=== PATIENT | female | born 1950 | race Hispanic/Latino ===

== ENCOUNTER 2022-03-24 06:07 | Observation (INO) | payer OTHER ==
[2022-03-21 15:28] VITALS: BP 191/97
[2022-03-21 15:33] LABS: BASOPHILS % (AUTO) 0.4 % (0.0-5.0); HEMATOCRIT 40.5 % (36-48); LYMPHOCYTES % (AUTO) 28.3 % (21.0-51.0); MEAN CORPUSCULAR HEMOGLOBIN 27.7 pg (27.0-33.0); MEAN CORPUSCULAR HGB CONC 31.4 g/dL (32.0-36.0); MEAN CORPUSCULAR VOLUME 88.4 fL (79-99); MONOCYTES % (AUTO) 7.4 % (3.0-13.0); NEUTROPHILS % (AUTO) 63.6 % (40.0-77.0); PLATELET COUNT (AUTO) 353 K/uL (130-400); RED BLOOD CELL COUNT(AUTO) 4.58 MIL/uL (4.00-5.50); RED CELL DISTRIBUTION WIDTH 15.2 % (11.0-15.5); WHITE BLOOD COUNT (AUTO) 7.8 K/uL (4.8-10.8)
[2022-03-21 15:42] LABS: ALBUMIN 3.7 g/dL (3.5-5.0); CARBON DIOXIDE 31 mmol/L (21-32); CHLORIDE 101 mmol/L (101-111); CREATININE 0.8 mg/dL (0.5-1.5); CRP QUANTITATIVE < 2.00 mg/L (0.00-9.0); GLOMERULAR FILTR. RATE CALC 75 mL/min (>60); GLUCOSE,RANDOM 125 mg/dL (70-105); POTASSIUM 3.5 mmol/L (3.5-5.1); SODIUM SERUM 136 mmol/L (136-145); UREA NITROGEN, BLOOD 9 mg/dL (7-18)
[2022-03-21 15:45] LABS: INR 0.93 (0.85-1.15); PROTHROMBIN TIME 9.6 SEC (9.6-11.6)
[2022-03-21 15:46] LABS: PARTIAL THROMBOPLASTIN TIME 26.7 SEC (26.3-35.5)
[2022-03-24] VITALS (28 sets, daily range): BP systolic 122–192; BP diastolic 10–104
[~2022-03-24] VITALS: Ht 149.9 cm; Wt 50.3 kg
[~2022-03-24 06:07] MED LIST: ALBUMIN (HUMAN) 5% 250 ML IV ONE; BUPIVACAINE/PF 0.5% 30ML VIAL ONE; ESMOLOL HCL 10 MG/ML 10 ML VIAL ONE; KETOROLAC 30MG VIAL (30MG/ML) ONE; LEVO88CA4 PO; RIVA20TA PO; ROPIVACAINE 0.5% 5MG/ML 30ML IJ ONE; TAMS-1 PO; TRAM50TA4 PO; TRANEXAMIC ACID 1000MG/10ML ONE; TRAZ-187 PO
[2022-03-24] MEDS ORDERED: SUCCINYLCHOLINE 200MG/10ML SYR ONE (06:26)
[2022-03-24] MEDS ORDERED: LIDOCAINE PF 100MG/5ML (2%) SYRINGE 5ML ONE (06:26)
[2022-03-24] MEDS ORDERED: GLYCOPYRROLATE 1 MG/5 ML SYRINGE ONE (06:27)
[2022-03-24] MEDS ORDERED: PROPOFOL 10 MG/ML 20ML VIAL IV ONE (06:27)
[2022-03-24] MEDS ORDERED: DEXAMETHASONE SOD PHOSPHATE 10MG/ML 1ML VIAL ONE (06:27)
[2022-03-24] MEDS ORDERED: ONDANSETRON 4MG INJ ONE (06:27)
[2022-03-24] MEDS ORDERED: NEOSTIGMINE 5MG/5ML SYR IV ONE (06:27)
[2022-03-24] MEDS ORDERED: ROCURONIUM 10MG/1ML SYR 10 MG/ML ML ONE (06:28)
[2022-03-24] MEDS ORDERED: FENTANYL CITRATE PF 50 MCG/1 ML 2ML VIAL ONE ×3 (06:28→08:40)
[2022-03-24] MEDS ORDERED: MIDAZOLAM HCL 1 MG/ML 2ML VIAL ONE (06:28)
[2022-03-24] MEDS ORDERED: LACTATED RINGERS 1000ML 1,000 ML IV ONE (06:29)
[2022-03-24] MEDS: CEFAZOLIN SODIUM 2 GM VIAL ONE ×2 (06:42→07:20)
[2022-03-24 07:26] LABS: APPEARANCE,URINE TURBID (CLEAR); BILIRUBIN,URINE NEGATIVE (NEGATIVE); COLOR,URINE YELLOW (YELLOW); GLUCOSE, URINE (UA) NEGATIVE (NEGATIVE); KETONES,URINE NEGATIVE (NEGATIVE); LEUKOCYTE ESTERASE ,URINE NEGATIVE Leu/uL (NEGATIVE); NITRATE,URINE NEGATIVE (NEGATIVE); OCCULT BLOOD,URINE NEGATIVE (NEGATIVE); PROTEIN,URINE NEGATIVE (NEGATIVE); UROBILINOGEN,URINE 0.2 mg/dL (0.2-1.0)
[2022-03-24 08:42] LABS: BACTERIA,URINE RARE /HPF (None Seen); MUCUS,URINE RARE LPF (None Seen); RBC,URINE 0-1 /HPF (0-1); RENAL EPITHELIAL CELLS,URINE RARE /HPF (None Seen); SQUAMOUS EPITHELIAL CELL,UR FEW /HPF (0-2)
[2022-03-24] MEDS ORDERED: POTASSIUM CHLORIDE 20MEQ/100ML 100 ML IV PRN (09:00)
[2022-03-24] MEDS ORDERED: KCL 20 MEQ ERTAB PO PRN (09:00)
[2022-03-24] MEDS ORDERED: KETOROLAC 15MG/ML VIAL (15MG/ML) IV PRN (09:00)
[2022-03-24] MEDS ORDERED: DiphenhydrAMINE HCL 50 MG/ML VIAL IVP PRN (09:00)
[2022-03-24] MEDS ORDERED: CALCIUM CARB 500MG PO PRN (09:00)
[2022-03-24] MEDS: 0.9%NACL 1000ML 1,000 ML IV SCH ×2 (09:00→18:34)
[2022-03-24] MEDS ORDERED: LIDOCAINE HCL-MPF 1% 2ML VIAL IV PRN (09:00)
[2022-03-24] MEDS ORDERED: FERROUS FUMARATE 324 MG TABLET PO PRN (09:00)
[2022-03-24] MEDS: DOCUSATE SODIUM 100 MG CAP PO SCH ×2 (09:00→20:17)
[2022-03-24] MEDS: GABAPENTIN 100 MG CAPSULE PO SCH ×3 (09:00→20:21)
[2022-03-24] MEDS ORDERED: POTASSIUM CHLORIDE 10% ELIXIR 20 MEQ/15 ML UDCUP PO PRN (09:00)
[2022-03-24] MEDS: POLYETHYLENE GLYCOL 3350 17 GM POWD.PACK PO SCH (09:00)
[2022-03-24] MEDS ORDERED: MEPERIDINE-PF 25 MG/ML SYG ONE ×2 (09:07→09:40)
[2022-03-24] MEDS ORDERED: LABETALOL 20MG SYG IV ONE (09:46)
[2022-03-24] MEDS: ONDANSETRON 4MG INJ IVP PRN ×2 (10:19→11:34)
[2022-03-24] MEDS: KETOROLAC 15MG/ML VIAL (15MG/ML) IV SCH ×2 (11:32→17:00)
[2022-03-24] MEDS: HYDROCODONE/ACETAMINOPHEN 5/325 MG TAB PO PRN ×2 (16:37→21:54)
[2022-03-24] MEDS: CEFAZOLIN SODIUM 1 GM VIAL IVP SCH ×2 (16:37→21:52)
[2022-03-24] MEDS: TRAZODONE HCL 100 MG TABLET PO SCH (20:17)
[2022-03-24] MEDS: TAMSULOSIN HCL 0.4 MG CAP.ER.24H PO SCH (20:17)
[2022-03-24] MEDS: CYCLOBENZAPRINE HCL 10 MG TABLET PO PRN (20:17)
[2022-03-24] MEDS: TRAMADOL HCL 50 MG TABLET PO PRN (20:18)
[2022-03-25] MEDS: KETOROLAC 15MG/ML VIAL (15MG/ML) IV SCH (00:42)
[2022-03-25 03:12] VITALS: BP 144/66
[2022-03-25] MEDS: 0.9%NACL 1000ML 1,000 ML IV SCH (05:00)
[2022-03-25] MEDS: LEVOTHYROXINE 88 MCG TABLET PO SCH (06:18)
[2022-03-25] MEDS: HYDROCODONE/ACETAMINOPHEN 5/325 MG TAB PO PRN ×3 (06:24→20:58)
[2022-03-25 06:31] LABS: HEMATOCRIT 29.3 % (36-48); MEAN CORPUSCULAR HEMOGLOBIN 28.2 pg (27.0-33.0); MEAN CORPUSCULAR HGB CONC 33.8 g/dL (32.0-36.0); MEAN CORPUSCULAR VOLUME 83.5 fL (79-99); RED BLOOD CELL COUNT(AUTO) 3.51 MIL/uL (4.00-5.50); RED CELL DISTRIBUTION WIDTH 14.6 % (11.0-15.5)
[2022-03-25 06:43] LABS: CREATININE 0.6 mg/dL (0.5-1.5); POTASSIUM 3.5 mmol/L (3.5-5.1)
[2022-03-25 08:00] VITALS: BP 127/72
[2022-03-25] MEDS: GABAPENTIN 100 MG CAPSULE PO SCH ×3 (11:38→20:57)
[2022-03-25] MEDS: DOCUSATE SODIUM 100 MG CAP PO SCH ×2 (11:38→20:57)
[2022-03-25] MEDS: POLYETHYLENE GLYCOL 3350 17 GM POWD.PACK PO SCH (11:38)
[2022-03-25] MEDS: ASPIRIN 325MG TAB PO SCH (11:39)
[2022-03-25 12:00] VITALS: BP 141/67
[2022-03-25 16:00] VITALS: BP 121/72
[2022-03-25 20:37] VITALS: BP 156/78
[2022-03-25] MEDS: CYCLOBENZAPRINE HCL 10 MG TABLET PO PRN (20:56)
[2022-03-25] MEDS: TRAMADOL HCL 50 MG TABLET PO PRN (20:57)
[2022-03-25] MEDS: TAMSULOSIN HCL 0.4 MG CAP.ER.24H PO SCH (20:57)
[2022-03-25] MEDS: TRAZODONE HCL 100 MG TABLET PO SCH (20:58)
[2022-03-25 23:47] VITALS: BP 157/61
[2022-03-26 03:58] VITALS: BP 145/74
[2022-03-26] MEDS: LEVOTHYROXINE 88 MCG TABLET PO SCH (05:58)
[2022-03-26] MEDS: HYDROCODONE/ACETAMINOPHEN 5/325 MG TAB PO PRN ×2 (06:56→08:51)
[2022-03-26 08:00] VITALS: BP 142/79
[2022-03-26] MEDS: POLYETHYLENE GLYCOL 3350 17 GM POWD.PACK PO SCH (08:50)
[2022-03-26] MEDS: GABAPENTIN 100 MG CAPSULE PO SCH ×2 (08:50→13:38)
[2022-03-26] MEDS: ASPIRIN 325MG TAB PO SCH (08:50)
[2022-03-26] MEDS: DOCUSATE SODIUM 100 MG CAP PO SCH (08:50)
[2022-03-26 11:00] VITALS: BP 137/70
[2022-03-26 13:29] LABS: HEMATOCRIT 30.5 % (36-48); MEAN CORPUSCULAR HEMOGLOBIN 27.8 pg (27.0-33.0); MEAN CORPUSCULAR HGB CONC 32.8 g/dL (32.0-36.0); MEAN CORPUSCULAR VOLUME 84.7 fL (79-99); RED BLOOD CELL COUNT(AUTO) 3.6 MIL/uL (4.00-5.50); RED CELL DISTRIBUTION WIDTH 14.7 % (11.0-15.5); WHITE BLOOD COUNT (AUTO) 10.7 K/uL (4.8-10.8)
[2022-03-26] MEDS ORDERED: GABA100C PO (14:36)
[2022-03-26] MEDS ORDERED: CYCL-309 PO (14:36)
[2022-03-26] MEDS ORDERED: DOCU-116 PO (14:36)
[2022-03-26] MEDS ORDERED: HYDR-4060 PO (14:36)
[2022-03-26] MEDS ORDERED: ASPI-1026 PO (14:36)
[2022-03-27] MEDS ORDERED: BISACODYL 10 MG SUPP.RECT RC PRN (09:00)
== END 2022-03-26 16:20 | disposition home health service (06) ==
LOC: DAH 06:07 → DAHIP 06:08 → DAH 06:08 → 3BH 10:30
PROVIDERS: ADMIT Student in an Organized Health Care Education/Training Program; ATTEND Student in an Organized Health Care Education/Training Program
DX: M17.11 Unilateral primary osteoarthritis, right knee (principal); Z20.822 Contact with and (suspected) exposure to COVID-19; M25.561 Pain in right knee; M25.562 Pain in left knee; G89.29 Other chronic pain; M17.0 Bilateral primary osteoarthritis of knee; D62 Acute posthemorrhagic anemia; Z79.899 Other long term (current) drug therapy; Z98.890 Other specified postprocedural states
CPT/HCPCS: 82040; 80048 ×2; 85025; 85610; 85730; 87088; 86140; 87426; 87641; 97039 ×6; 27447; 96374; 96376 ×2; 96375; 76942; 64447; 87077; 87186; 84134; 81001; 36415 ×3; 73560; 97161; 97530 ×4; 85027 ×2; 97116 ×4; 93005; G0378 ×51; A4663; A4215 ×2; P9045; J7120; J1200; J3010 ×3; J0690 ×3; J3490 ×5; J0330; J1100; J2710; J7030; J2001; J2250; J2704; J2405 ×2; J1885 ×3; J2175 ×2; J2795; G0168; A4649 ×4; C1776; A6255; A5120; A4223; A4222; A4221

== ENCOUNTER 2024-08-10 06:24 | Observation (INO) | payer OTHER ==
--- NOTE | 2024-08-08 09:30 | EKG ---
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
[2024-08-08 09:32] VITALS: BP 140/63; PULSE 68; RESP 17; TEMP 98.1
[2024-08-08 09:35] LABS: IMMATURE GRANULOCYTE ABSOLUTE 0.02 K/uL (0-1); NUCLEATED RED BLOOD CELLS 0.0 % (0.0-0.19); PLATELET COUNT (AUTO) 319 K/uL (130-400); RED BLOOD CELL COUNT(AUTO) 4.47 MIL/uL (4.00-5.50); RED CELL DISTRIBUTION WIDTH 15.5 % (11.0-15.5); WHITE BLOOD COUNT (AUTO) 7.3 K/uL (4.8-10.8)
[2024-08-08 09:43] LABS: APPEARANCE,URINE CLEAR (CLEAR); GLUCOSE, URINE (UA) NEGATIVE (NEGATIVE); LEUKOCYTE ESTERASE ,URINE NEGATIVE Leu/uL (NEGATIVE); NITRATE,URINE NEGATIVE (NEGATIVE); OCCULT BLOOD,URINE NEGATIVE (NEGATIVE)
[2024-08-08 09:45] LABS: ADD UA MICROSCOPIC NO
[2024-08-08 09:45] LABS: CREATININE 0.5 mg/dL (0.5-1.0); GLOMERULAR FILTR. RATE CALC 98.0 mL/min (>90); GLUCOSE,RANDOM 96.0 mg/dL (70-105); SODIUM SERUM 139.0 mmol/L (136-145); UREA NITROGEN, BLOOD 7.0 mg/dL (7-18)
[2024-08-08 09:47] LABS: INR <= 0.93 (0.85-1.15)
--- NOTE | 2024-08-08 09:53 | NUR ---
RE: IS INITIAL IS INITIAL TEACHING DONE BY RT DELMER DURING PREOP
[2024-08-10] VITALS (35 sets, daily range): BP systolic 96–189; BP diastolic 5–92; PULSE 15–92; RESP 14–20; TEMP 97.3–98.2; O2SAT 96–97
[~2024-08-10] VITALS: Ht 142.2 cm; Wt 55.8 kg
[~2024-08-10 06:24] MED LIST changes: -ALBUMIN (HUMAN) 5% 250 ML IV ONE; -BUPIVACAINE/PF 0.5% 30ML VIAL ONE; -ESMOLOL HCL 10 MG/ML 10 ML VIAL ONE; -KETOROLAC 30MG VIAL (30MG/ML) ONE; +LEVO100T12 PO; -LEVO88CA4 PO; +LOSA25TA41 PO; -RIVA20TA PO; +ROPI1TAB46 PO; -ROPIVACAINE 0.5% 5MG/ML 30ML IJ ONE; -TAMS-1 PO; +TRAM100C3 PO; -TRAM50TA4 PO; -TRANEXAMIC ACID 1000MG/10ML ONE; +TRAZ-185 PO; -TRAZ-187 PO
[2024-08-10] MEDS: LACTATED RINGERS 1000ML 1,000 ML IV ONE (06:54)
[2024-08-10] MEDS ORDERED: SUCCINYLCHOLINE CHLORIDE 20 MG/ML 10 ML VIAL ONE (07:23)
[2024-08-10] MEDS ORDERED: LIDOCAINE PF 100MG/5ML (2%) SYRINGE 5ML ONE (07:23)
[2024-08-10] MEDS ORDERED: GLYCOPYRROLATE 0.2 MG/ML 5 ML VIAL ONE (07:24)
[2024-08-10] MEDS ORDERED: NEOSTIGMINE METHYLSULFATE 1MG/ML IV ONE (07:24)
[2024-08-10] MEDS ORDERED: TRANEXAMIC ACID 1000MG/10ML ONE (07:28)
[2024-08-10] MEDS ORDERED: MIDAZOLAM HCL 1 MG/ML 2ML VIAL ONE (07:41)
[2024-08-10] MEDS: 0.9%NACL 1000ML 1,000 ML IV SCH (08:00)
[2024-08-10] MEDS: FAMOTIDINE 20MG VIAL IV ONE (08:49)
[2024-08-10] MEDS ORDERED: FERROUS FUMARATE 324 MG TABLET PO PRN (11:00)
[2024-08-10] MEDS ORDERED: HYDROcodone/APAP 5/325 1 TAB TABLET PO PRN (11:00)
[2024-08-10] MEDS ORDERED: PoTASSium chl 10% ELIXIR 20MEQ 20 MEQ/15 ML UDCUP PO PRN (11:00)
[2024-08-10] MEDS ORDERED: CYCLOBENZAPRINE HCL 10 MG TABLET PO PRN (11:00)
--- NOTE | 2024-08-10 12:51 | HMCIMG ---
EXAM: CR left knee, 2 View. CLINICAL HISTORY: S/P LEFT TKA SURGERY COMPARISON: None provided. FINDINGS: Cemented left total knee arthroplasty is in near anatomic alignment with no periprosthetic fracture appreciated. Left knee joint effusion. Appropriate postsurgical changes within the soft tissues. IMPRESSION: 1. Status post left total knee arthroplasty with near anatomic alignment. Left knee joint effusion. 2. No acute findings. /[place]
--- NOTE | 2024-08-10 14:00 | NUR ---
REPORT TAKEN FROM FELY RN. PATIENT ARRIVED TO THE UNIT NO SIGNS OF DISTRESS NOTED. POST OP VITALS STARTED, SCDS CONNECTED WELL FLUIDS. WILL MONITOR PATIENT FOR PAIN.
--- NOTE | 2024-08-10 14:01 | OP ---
Operative Note: DATE OF PROCEDURE: 08/10/24 PREOPERATIVE DIAGNOSIS: Left knee valgus osteoarthritis. POSTOPERATIVE DIAGNOSIS: Left knee valgus osteoarthritis. PROCEDURE PERFORMED: Left knee total knee arthroplasty. SURGEON: Xiomara Larson MD [employer] OWNER: Rosibel Mi and Salma Castro. ANESTHESIA: General with adductor canal block. ANESTHESIA: CIERA Diaz. ESTIMATED BLOOD LOSS: 50cc. COMPLICATIONS: None. DRAINS: None. SPECIMENS REMOVED: resected bone. Not sent to pathology. IMPLANTS: [employer] II BCS size 3 Oxinium femur, size 2 tibial base plate, 32 x 7.5 mm patella, 10 mm polyethylene STATEMENT OF MEDICAL NECESSITY: The patient is a 73-year-old female who suffers from left knee osteoarthritis failing conservative management. After discussion of the risks, benefits, and alternatives with the patient, they voluntarily agreed to undergo the aforementioned procedure. DESCRIPTION OF PROCEDURE: Patient was properly identified in the preoperative holding area. Surgical site marking was verified and surgery consent reviewed. The patient was then taken to the operating room and placed in supine position on the OR table. After induction of general anesthesia, preoperative antibiotics were given, all bony prominences were well-padded, and a well padded tourniquet was applied but not inflated at this time. The left lower extremity was then prepped and draped in usual sterile fashion. Surgical time out was done verifying correct surgery, side, site, and location to be performed. We then began the procedure by exsanguinating the limb using an Esmarch and inflating the tourniquet to 350 mmHg. At this point, we made an anterior midline incision using a 10 blade, coming down sharply the level of the fascia. Skin flaps were elevated medially and laterally. We then obtained a clean 10 blade and performed a standard medial parapatellar arthrotomy. We excised the infrapatellar fat pad. We performed our soft tissue releases off of the tibia. We transected the ACL and removed the anterior portion of the medial & lateral meniscus. We then brought the knee into hyperflexion with the patella everted. We used our entry reamer to enter the femoral canal. We then placed our intramedullary cutting guide for our distal femoral cutting block. We then performed our distal femoral osteotomy ensuring appropriate rotation and removed the bony wafer. We then removed these pins and block and then used jig 2 to size the distal femur with the after mentioned size found. We then placed our 5-in-1 cutting block in 4 degrees of external rotation and took our 5 cuts ensuring to protect the patellar tendon and the collateral ligaments. We then removed the cutting block and our bony fragments using a curved osteotome. We then placed our PCL retractor subluxating the tibia anteriorly. Using an extra medullary tibial cutting guide, we hung the block for our proximal tibial cut taking 2 mm off the more diseased portion. Prior to pinning this block in place, we ensured appropriate varus/valgus alignment and posterior slope similar to the [place] slope of the patient's knee. We then performed our proximal tibial osteotomy and removed the bony wafer using Bovie electrocautery to release any remaining soft tissue attachments. We then used our tibial sizing paddle and checked once more for varus & valgus alignment and found this to be appropriate. At this point, we pinned our tibial paddle in place. We then removed the PCL retractor and subluxated the tibia posteriorly while we placed our femoral trial component. We then finished preparing the notch with the reamer and box chisel. The notch portion of the trial femoral component was then placed. A posterior stabilized polyethylene, size 9 trial was placed. The knee was then taken through range of motion and found to have stable full range of motion. We then placed a bump under the ankle and everted the patella to perform our freehand cut of the undersurface the patella. We then sized our patella and reamed to the lug holes for this. We placed our trial patellar component and begin to take the knee through range of motion. The patella had extreme lateral tracking and we therefore performed a large lateral release. There was still some lateral pull of the patella with a flexion so we elected to use the thinner 7.5mm patellar component. At this point we began removing our trial components and punched the tibial keel prior to removing our tibial trial component. Final components were opened and cement was mixed on the back table while we injected local cocktail in the posterior capsule. We then thoroughly irrigated out the bone and dried the bony surfaces. We cemented our tibial component in place ensuring to remove excess cement and placed our trial polyethylene. We then cemented our femoral component in place once again taking time to ensure excess cement was removed leg was brought into full extension to help squeeze the excess cement from around the femoral component. We then brought the knee back in a flexion to remove this portion of the cement at this point we placed the ankle in a bump thoroughly irrigated off the patellar component and cemented our patellar component in standard fashion again removing excess cement. While we waited for the cement to cure, we thoroughly irrigated out the wound with normal saline. Once our cement had cured, we took the knee through a range of motion and found full and stable range of motion. We then elected to use the size 10 polyethylene and removed our trial polyethylene. We impacted our final polyethylene component in place in standard fashion and took the knee through a range of motion check once more. This was satisfactory so we began to repair the arthrotomy using #5 Ethibond and #1 Vicryl in interrupted [id number] fashion. Subcutaneous tissue was repaired using 2-0 Vicryl. Running subcuticular 3-0 Monocryl stitch with Dermabond placed over this for the skin. We then applied a foam barrier dressing and a pressure dressing consisting of 4 x 4's fluffs and an Anthony wrap. The tourniquet was then deflated. Patient was awakened from anesthesia, and they were taken to the recovery room in stable condition. XIOMARA LARSON MD Aug 10, 2024 14:01
[2024-08-10] MEDS: HYDROcodone/APAP 5/325 1 TAB TABLET PO PRN ×2 (15:35→22:50)
--- NOTE | 2024-08-10 16:48 | NUR ---
Ortho Coordinator: Patient working with physical therapy.
--- NOTE | 2024-08-10 18:41 | NUR ---
DC PLAN VISITED WITH PATIENT. PATIENT LIVES WITH SPOUSE. INDEPENDENT ABLE TO PERFORM ADL'S. PATIENT HAS NO SERVICES. WALKER AND CANE AVAILABLE. SAID HAD A HH LAST KNEE THAT SHE LIKED AND WOULD LIKE THE SAME. [place] CHECKED HAD [facility]. EXPLAINED DUE TO [place] DONT KNOW IF WILL HAVE NURSE TO GO OUT THERE SO ALSO GO [facility] FOR ANY IN NETWORK WELL. PACKET MADE AND SENT. Addendum: 08/10/24 at 1844 by ALEXIS VICKERS RN CM Amended: Links added.
[2024-08-11] VITALS: BP 120/71; PULSE 87; RESP 18; TEMP 98.5
[2024-08-11 03:55] VITALS: BP 119/63; PULSE 85; RESP 18; TEMP 97.3
[2024-08-11 04:08] LABS: NUCLEATED RED BLOOD CELLS 0.0 % (0.0-0.19); PLATELET COUNT (AUTO) 235.0 K/uL (130-400); RED BLOOD CELL COUNT(AUTO) 3.23 MIL/uL (4.00-5.50); RED CELL DISTRIBUTION WIDTH 15.0 % (11.0-15.5); WHITE BLOOD COUNT (AUTO) 9.0 K/uL (4.8-10.8)
[2024-08-11 04:27] LABS: CREATININE 0.5 mg/dL (0.5-1.0); GLOMERULAR FILTR. RATE CALC 98.0 mL/min (>90); GLUCOSE,RANDOM 111.0 mg/dL (70-105); SODIUM SERUM 133.0 mmol/L (136-145); UREA NITROGEN, BLOOD 9.0 mg/dL (7-18)
[2024-08-11] MEDS: PoTASSium chloRIDE 20MEQ ER 20 MEQ ERTAB PO PRN (05:32)
[2024-08-11 08:00] VITALS: BP 136/61; PULSE 87; RESP 20; TEMP 98.3; O2SAT 96
[2024-08-11] MEDS: CALCIUM CARB 500MG PO PRN (08:03)
[2024-08-11] MEDS: ASPIRIN 325MG EC TAB PO SCH (08:03)
--- NOTE | 2024-08-11 11:45 | NUR ---
Ortho Coordinator: Teaching regarding DVT and pneumonia prevention, pain expectations and pain management. Patient in bed, ice pack to L knee. Reports just completing physical therapy. B SCD sleeves at bedside and machine in room. Dressing dry and intact. Patient reports pain controlled. Incentive spirometer at bedside. Patient return demonstrated proper use of device and verbalized the frequency of use. Patient return demonstrated proper foot flexion/extension exercises. Patient encouraged to perform self pain assessments every four hours and assign a numeric pain value with the type of pain. Reassured patient pain medications would be called to pharmacy at discharge. Patient intends to discharge home with home health physical therapy. Encouraged patient to continue premedicating prior to physical therapy sessions and periods of high activity, to use incentive spirometer until her activity reaches pre-surgery levels and to continue foot flexion and extension exercises after discharge home. No additional questions/concerns. Addendum: 08/11/24 at 1333 by EBONI RUFF RN RN Patient voiced preferred pharmacy as [facility]. Confirmed correct pharmacy captured.
[2024-08-11 12:00] VITALS: BP 105/54; PULSE 85; RESP 18; TEMP 98.8
[2024-08-11] MEDS ORDERED: GABA100C PO (13:55)
[2024-08-11] MEDS ORDERED: DOCU-116 PO (13:55)
[2024-08-11] MEDS ORDERED: ASPI-891 PO (13:55)
[2024-08-11] MEDS ORDERED: HYDR-4060 PO (13:55)
[2024-08-11] MEDS ORDERED: CYCL-309 PO (13:55)
--- NOTE | 2024-08-11 16:17 | NUR ---
PATIENT IS DISCHARGED. IV TAKEN OUT WITH CATHETER INTACT. EDUCATION GIVEN TO THE PATIENT ON POST OP AFTER CARE, AND MEDICATIONS TO START. PATIENT TAKEN DOWN BY ASSET LIABILITY ANALYST.-
== END 2024-08-11 16:30 | disposition home health service (06) ==
LOC: DAH 06:24 → DAHIP 06:25 → 4AH 14:00
PROVIDERS: ADMIT Student in an Organized Health Care Education/Training Program; ATTEND Student in an Organized Health Care Education/Training Program
DX: M17.12 Unilateral primary osteoarthritis, left knee (principal); I10 Essential (primary) hypertension; E07.9 Disorder of thyroid, unspecified; Z79.899 Other long term (current) drug therapy; Z86.2 Personal history of diseases of the blood and blood-forming organs and certain disorders involving the immune mechanism
CPT/HCPCS: 82040; 80048 ×2; 85025; 85610; 85730; 87086; 84134; 86140; 81003; 36415 ×2; 93005; 87641; 96365; 96366; 96375; 27447; 73560; 97161; 97116 ×3; 97530 ×5; 96376; 85027; G0378 ×30; A4600; A4223 ×2; A4663; J7120 ×2; A4649 ×3; J3490 ×6; J3010 ×5; J1100; J0330; J2003; J0360; J2250; J2704; J2405 ×2; J1885 ×5; J2710; J2795 ×3; J0690 ×4; C1713 ×2; C1776 ×2; A6255; A5120; A4215; A4213; A4222; A4221; A4216